=== PATIENT | female | born 1975 | race Caucasian/White ===

== ENCOUNTER 2022-08-25 16:20 | Outpatient (REF) | payer OTHER, SELFPAY ==
[2022-08-30 14:04] LABS: Aldolase 6.5 U/L (<=8.1)
== END 2022-08-25 16:21 | disposition home or self-care (01) ==
LOC: HO.LAB 16:20
PROVIDERS: PCP Internal Medicine; Visit Provider Psychiatry & Neurology Neurology
DX: G71.00 Muscular dystrophy, unspecified (principal)
CPT/HCPCS: 36415; 82085; 82550

== ENCOUNTER 2025-04-20 14:26 | Outpatient (AMB) | payer MEDICARE, MEDICAID, SELFPAY ==
--- OUTSIDE RECORDS SUMMARY | 2024-04-05 12:44 | XMS_ITS | Encounter Summary ---
Author Organization [facility] [place] [address] Care Team Providers Care Warehouse Puller Name Role Phone Chino Sena MD Primary Care Provider [phone] Encounter Details Date Type Department Care Team (Late st Contact Info) Description 04/05/2024 1:44 PM EDT Hospital Encounter TH HISTORIC ENCOUNTERS EASTERN CONVERSION ONLY El Roth MD [address] [place] [address] [place] [address] Social History Tobacco Use Types Packs/Day Years Used Date Smoking Tobacco: Former Cigarettes 1 25.9 1 07/02/1983 - 03/11/2010 Smokeless Tobacco: Never Alcohol Use Standard Drinks/Week Comments Yes 0 (1 standard drink = 0.6 oz pur e alcohol) Interpersonal Safety Answer Date Record ed Physical Abuse Unrecognized value 09/30/2024 Verbal Abuse Unrecognized value 09/30/2024 Comments No Sex and Gender Information Value Date Recorded Sex Assigned at Female 09/18/2021 11:49 PM EDT Legal Sex Female 4:26 AM EDT Gender Identity Female 09/18/2021 11:49 PM EDT Sexual Orientation Straight 05/25/2024 5: 53 AM EST documented as of this encounter Procedure Notes * Queta Park NP - 04/06/2024 9:00 AM EDT ADDENDUM: 04/06/2409 Addendum: [facility] [employer]-C on 04/06/24 @ 09:08 Late entry for procedure performed on 04/05/2024 Procedure Note Encounter Date & Time 04/06/24 08:57 Procedure Note Procedure: Tilt table test Patient was brought to the radiology department fasting state and placed onto the tilt table. She was connected to continuous noninvasive EKG monitoring. A hemisphere finger blood pressure monitor was used for the duration of the pro cedure. An intravenous line was inserted with normal saline at a KVO rate. Baseline blood pressure 81/65 with a heart rate of 64 normal sinus rhythm. Patient is asymptomatic. After a 5-minute wait. The table was tilted to a 70 degree upright position. First blood pressure upright is 86/75 with a heart rate of 66 patient is asymptomatic. At 10 minutes the blood pressure is 107/78 with heart rate of 71 At 20 minutes of blood pressure is 92/66 with a heart rate of 68 patient is asymptomatic. Patient was returned to a flat position I did give her 500 cc of IV normal saline. After the fluid her blood pressure lying is 116/70 with a heart rate of 60 when she went from lying to sitting she was briefly dizzy her systolic pressure did briefly drop into the 70s before coming back up into the 90s heart rate remained in the 60s when she went from sitting to standing her systolic again very briefly dropped into the 80s and stabilized in the mid 90s with a heart rate of 66 and she was mildly symptomatic. Impression: Orthostatic hypotension. Of asked her to increase her sodium and her fluid intake. She is currently been on a low to no sodium diet. Send Copies To: CHINO SENA MD; EL ROTH MD, PHYLLIS A FNP-C Apr 06, 2024 09:00 documented in this encounter Plan of Treatment Upcoming Encounters Date Type Department Care Team (Late st Contact Info) Description 05/08/2025 1:00 PM EST Office Visit Orthopedic Surgery - [place] [address] [facility] [address] [place] [phone] Cecil Cruz DPM 175 [facility] [address] [place] [phone] 05/10/2025 2:40 PM EST Office Visit [facility] [address] [place] [address] Dr Phipps [address] [place] [phone] Alivia Aragon NP [address] [place] [address] Matthew [address] [place] [phone] 05/23/2025 3:15 PM EST Office Visit Internal Medicine - [address] [phone] Marisel aDniel NP [address] [place] [phone] 05/25/2025 2:00 PM EST Office Visit Internal Medicine - [address] [phone] Tanya Velasco MD [address] [place] [address] 05/29/2025 4:00 PM EST Office Visit Pulmonology - [place] 175 [facility] [address] [place] [phone] Wendy Lang, SELLING UNDERWRITER [address] [place] [phone] 07/03/2025 3:00 PM EST Office Visit Gastroenterology - [address] [place] [address] [phone] Citlaly Longoria, MAGGI [address] [address] 07/25/2025 4:00 PM EST Office Visit Endocrinology - [place] [address] [place] [address] Tomasa Aranda PA [address] [place] [address] documented as of this encounter Visit Diagnoses Not on filedocumented in this encounter Additional Health Concerns Infection Onset Date Last Indicated Resolved Time COVID-19 04/25/2024 04/25/2024 05/25/2024 7:05 PM EST documented as of this encounter Care Teams Warehouse Puller Relationship Specialty Start Date End Date Chino Sena MD PCP - General Internal Medicine 06/11/16 03/02/25 documented as of this encounter
--- NOTE | 2025-04-20 14:34 | A.OFFVIS_ITS ---
Intake Visit Reasons: 6m migraine, RLS Allergies adhesive tape Allergy (Unknown, Verified 04/20/25 14:40) Unknown ibuprofen Allergy (Unknown, Verified 04/20/25 14:40) Unknown oxaprozin (From Daypro) Allergy (Unknown, Verified 04/20/25 14:40) Unknown senna Allergy (Unknown, Verified 04/20/25 14:40) Unknown Medication List - Last Reconciled 04/20/25 by Rosa Cage CNP albuterol sulfate 90 mcg/actuation (Ventolin HFA) inhalation baclofen 5 mg PO TID buspirone 22.5 mg PO BID dulaglutide (Trulicity) mg subcut duloxetine 30 - 60 mg PO DAILY gabapentin 800 mg PO TID lovastatin 80 mg PO BEDTIME montelukast 10 mg PO BEDTIME propranolol 10 mg PO DAILY PRN ropinirole 0.25 - 0.5 mg PO QPM sumatriptan succinate 50 mg PO topiramate 25 mg PO BEDTIME ustekinumab (Stelara) mg subcut HPI Comments Details: 49-year-old woman with 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 She had muscle biopsy which came back insignificant. ? She was doing okay. Headaches were not that bad and she has not had to use sumatriptan. RLS symptoms were controlled with ropinirole 0.5mg. Sleep was so- so, using CPAP. Stress was still there, working with therapist and psychiatrist. She grew tomato plants over the summer which she enjoyed. [facility] Medical History (Updated 04/20/25 @ 14:40 by Rosa Cage CNP) Insomnia Diabetes MERCEDES (obstructive sleep apnea) Crohn's disease Low back pain Muscular dystrophy, unspecified Migraine RLS (restless legs syndrome) Review of Systems Const Denies chills, Denies daytime sleepiness, Denies difficulty sleeping, Denies fatigue, Denies fever(s), Denies frequent falls, Reports headache(s), Denies increased appetite, Denies poor appetite, Denies snoring, Denies weakness, Denies weight gain and Denies weight loss Eyes Denies loss of vision ENT Denies vertigo, Denies dizziness and Reports headache(s) Card Denies chest pain at rest, Denies chest pain with activity, Denies syncope, Denies leg edema and Denies palpitations Resp Denies snoring GI Denies constipation, Denies heartburn, Denies diarrhea and Denies nausea Denies urinary frequency, Denies urinary incontinence and Denies urinary urgency Musc Denies abnormal gait, Denies numbness and Denies tingling Skin/Breast Denies dry skin and Denies rash Neuro Denies abnormal gait, Denies vertigo, Denies dizziness, Denies syncope, Denies frequent falls, Reports headache(s), Denies lack of coordination, Denies loss of vision, Denies memory loss, Denies numbness, Reports restless legs, Denies seizure-like activity, Denies tingling, Denies paresthesias, Denies tremor(s) and Denies weakness Psych Denies anxiety, Denies depression, Denies auditory hallucinations, Denies memory loss, Denies visual hallucinations and Denies suicidal ideation Endo Denies fatigue and Denies palpitations Physical Exam Const Other: General Appearance:? normal, in no acute distress. Heart:? S1, S2 normal, no murmurs. Lungs:? clear anteriorly and posteriorly. Musculoskeletal:? normal. Extremities:? R walking boot. Psych:? alert, oriented, cognitive function intact, cooperative with exam. Neuro Other: Mental Status:?Normal attention, orientation, memory and affect.? Cranial Nerves:?Pupils are equal, round and reactive to light. External occular muscles are intact. Visual monzon are full. Face is symmetrical. Facial sensations are normal. Tongue is midline. Palate elevates symmetrically. Shoulder shrugging is normal. Hearing to bedside conversation is normal. Motor Examination:?Hypertrophy of both calfs, rare fasciculations in calfs and thigh muscles. DTRs trace, absent in ankles with flexor plantars.? Sensory Exam:?....? Coordination:?No ataxia,?no titubation.? Gait Exam: Within normal limits. Cerebellar Signs:?[id number] is okay. Extrapyramidal System:?No tremor, rigidity with normal facial expressions.? Pronator Drift:?Not present.? Involuntary Movements:?No tremors seen.? Speech:?Normal.? Results Reviewed Results Reviewed: NCV/EMG LE Moderate to severe bilateral peroneal neuropathy. 08/28/22. MRI C spine WWO at [facility] in 2014: straight curvature, C 6/7 dis bulge MRI brain WO at [facility] in 2014: [place] MRI T spine at [facility] WO in 2014: [place] MRI LS spine at [facility] WO in 07-22: L 4/5 and L5/S1 mild stenosis Labs at [facility] in : CBC ok, ESR 5, CMP ok, LFTs ok, B12 1784, Folate >20, TSH 1.1, LDL: 71 RF ok, RONAL neg, Lyme neg, tox scr + canabanoids. Assessment & Plan Assessment & Plan (1) Migraine: Code(s): G43.909 - Migraine, unspecified, not intractable, without status migrainosus Category: Medical Qualifiers: Migraine type: unspecified Status migrainosus presence: without status migrainosus Intractability: not intractable Qualified Code(s): G43.909 - Migraine, unspecified, not intractable, without status migrainosus Plan: Continue topiramate 25mg 1 tablet at bedtime. Continue sumatriptan 50mg 1 tablet as needed for migraine. (2) RLS (restless legs syndrome): Code(s): G25.81 - Restless legs syndrome Category: Medical Plan: Continue ropinirole 0.25mg 2 tablets in the evening. (3) Fibromyalgia: Code(s): M79.7 - Fibromyalgia Category: Medical (4) Anxiety: Code(s): F41.9 - Anxiety disorder, unspecified Category: Medical (5) Muscular dystrophy, unspecified: Code(s): G71.00 - Muscular dystrophy, unspecified Category: Medical Plan Meds tried: Gabaentin, duloxetine, diazepam, verapamil Medications: New topiramate 25 mg PO BEDTIME 90 tabs 1RF 90 days ropinirole 0.5 mg (2 x 0.25 mg) PO QPM 180 tabs 1RF 90 days Coding Level of Care Code Est Pt Level 4 (91969) Diagnoses Migraine without status migrainosus, not intractable, unspecified migraine type G43.909 Migraine type: unspecified Status migrainosus presence: without status migrainosus Intractability: not intractable RLS (restless legs syndrome) G25.81 Fibromyalgia M79.7 Anxiety F41.9 Muscular dystrophy, unspecified G71.00
--- OUTSIDE RECORDS SUMMARY | 2025-04-20 17:52 | XMS_ITS | Clinical Summary ---
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 ([facility] V24, [facility] V28) DX:Muscular dystrophy ([facility]) Gassiness DX:Gassiness Moderate non-proliferative d iabetic retinopathy ([facility] V24, [facility] V28) 03/06/2023 DX:Moderate non -proliferative diabetic retinopathy ([facility]) Covid 04/24/2024 Family History Medical History Relation Name Comments Other cancer Aunt 1 ovarian/hystere ctomy-materna l Breast cancer Aunt 2 lymph ducts/ma stectomy same aunt-mat Other: Other Aunt 3 paternal aunt d ied in her early 50s Breast cancer Aunt 4 maternal aunt, bilateral No Known Problems Brother 1 Other: degenatrative spine disease Brother 2 No Known Problems Daughter No Known Problems Father Other cancer Maternal Grandfather abdomin al-likely pancreatic Colon cancer Maternal Grandmother and bacilio betes Dementia Maternal Grandmother Diabetes Mother dementia, sleep apnea Colon cancer Other 1 maternal gr unc le; and lung Colon cancer Other 2 maternal gr unc le Other cancer Paternal Grandfather throat/ laryngeal ca, cigar smoker Sleep disorder Paternal Grandmother of [place] - age 50; arthritis also Relation Name Status Comments Aunt 1 Aunt 2 Aunt 3 Aunt 4 Brother 1 Alive Brother 2 Daughter Alive Father Alive Maternal Grandfather Maternal Grandmother Alive Mother Alive Other 1 Other 2 Paternal Grandfather Paternal Grandmother Social History Tobacco Use Types Packs/Day Years Used Date Smoking Tobacco: Former Cigarettes 1 25.9 1 07/02/1983 - 03/11/2010 Smokeless Tobacco: Never Tobacco Cessation:Counseling Given: Not Answered Alcohol Use Standard Drinks/Week Comments Yes 0 [...] Orientation Straight 05/25/2024 5: 53 AM EST Obstetrics History * This document contains information received from the source organization and may not represent a complete record from that organization. Para Term AB IAB SAB Ectopic Multiple Livin g Live Births 2 1 1 1 1 Date Outcome GA Total Labor Labor/2nd/3rd Weight Sex Type Anes PTL Whitley A1 A5 Name Clin 01/05 02/15 Term 39w 0d 3884 g (137 oz) F CS-Un spec Living Nancy Last Filed Vital Signs Vital Sign Reading Time Taken Comments Blood Pressure 88/61 04/14/2025 2:26 PM EST Pulse 64 04/14/2025 2:26 PM EST Temperature 36.4 C (97.5 F) 04/14/2025 2:26 PM EST Respiratory Rate 16 01/26/2025 4:12 PM EDT Oxygen Saturation 98% 02/13/2025 1:40 PM EDT Inhaled Oxygen Concentration - - Weight 86.7 kg (191 lb 3.2 oz) 04/14/2025 2:26 P M EST Height 165.1 cm (5' 5 ) 04/14/2025 2:26 PM EST Body Mass Index 31.82 04/14/2025 2:26 PM EST Plan of Treatment Upcoming Encounters Date Type Department Care Team (Late st Contact Info) Description 05/08/2025 1:00 PM EST Office Visit Orthopedic Surgery - [place] [address] [phone] Cecil Cruz, DPM [address] [phone] 05/10/2025 2:40 PM EST Office Visit [facility] [address] [place] [phone] Alivia Aragon NP [address] [place] [address] 05/23/2025 3:15 PM EST Office Visit Internal Medicine - [address] [phone] Marisel Daniel, POT OPERATOR [address] [place] [address] 05/25/2025 2:00 PM EST Office Visit Internal Medicine - [place] [facility] [address] [place] [address] Tanya Velasco MD [address] [place] [phone] 05/29/2025 4:00 PM EST Office Visit Pulmonology - [place] 175 [facility] [address] [place] [phone] Wendy Lang, MAGGI [address] [place] [phone] 07/03/2025 3:00 PM EST Office Visit Gastroenterology - [address] [facility] [address] [place] [phone] Citlaly Longoria NP [address] [address] 07/25/2025 4:00 PM EST Office Visit Endocrinology - [place] [address] [place] [phone] Tomasa Aranda PA [address] [place] [address] Health Maintenance Due Date Last Done Comments Hepatitis B Vaccines (1 of 3 - 19+ 3-dose series) 1992 Pneumococcal Vaccine: 50+ Years (2 of 2 - PCV) 03/03/2015 03/03/2014 Hepatitis C Screening 01/17/2021 Medicare Annual Wellness Visit 01/17/2021 Social Influencers of Health Screening 01/17/2021 RSV Immunization Adult Patients (1 - Risk 50-74 years 1-dose series) 2023 Zoster Vaccines (1 of 2) 2023 Depression Screening 06/08/2024 05/13/2024 Diabetes: Annual Urine Albumin-Creatinine Ratio (uACR) 09/14/2024 09/15/2023 Diabetes: Annual Foot Exam 09/16/2024 09/17/2023 COVID-19 Vaccine ( season) 2025 02/09/2021, 12/31/2020 Influenza Vaccine (#1) 2025 , 05/08/2020, 05/08/2020, Additional history exists Diabetes: Annual Retina Eye Exam 04/18/2025 04/18/2024 Diabetes: Blood Sugar Control Test (HGBA1C) 07/14/2025 01/11/2025, 06/28/2024, 02/09/2024, Additional history exists Diabetes: Annual GFR (Glomerular Filtration Rate) 03/29/2026 03/29/2025, 11/08/2024, 02/09/2024, Additional history exists Breast Cancer Screening 03/03/2027 03/03/20, 02/16/2024, 02/16/2024, Additional history exists Cervical Cancer Screening: HPV 08/21/2027 08/20/2022 Cholesterol Screening (Lipid Panel) 09/14/2028 09/15/2023 Colorectal Cancer Screening: Colonoscopy 09/30/2029 09/30/2024, 03/16/2019 DTaP,Tdap,and Td Vaccines (3 - Td or Tdap) 02/17/2033 02/17/2023, 11/19/2012 HIV Screening Completed 05/08/2015 HIB Vaccines Aged Out No longer eligi ble based on patient's age to complete this topic HPV Vaccines Aged Out No longer eligi ble based on patient's age to complete this topic Hepatitis A Vaccines Aged Out No long er eligible based on patient's age to complete this topic IPV Vaccines Aged Out No longer eligi ble based on patient's age to complete this topic MMR Vaccines Aged Out No longer eligi ble based on patient's age to complete this topic Meningococcal ACWY Vaccine Aged Out N o longer eligible based on patient's age to complete this topic Meningococcal B Vaccine Aged Out No l onger eligible based on patient's age to complete this topic RSV Immunization Patients Under 20 months Aged Out No longer eligible based on patient's age to complete this topic Varicella Vaccines Aged Out No longer eligible based on patient's age to complete this topic Procedures Procedure Name Priority Date/Time Associated Diagnosis Comments MG MAMMO DIGITAL SCREENING W BRANDON BILAT Routine 03/03/2025 3:32 PM EDT Encounter for screening mammogram for breast cancer HEMOGLOBIN A1C Routine 01/11/2025 2:33 PM EDT Diabetes 1.5, managed as type 2 ([facility] V24, [facility] V28) BASIC METABOLIC PANEL Routine 11/08/2024 3:20 PM EDT Type 2 diabetes, controlled, with neuropathy ([facility] V24, [facility] V28) COLONOSCOPY Routine 09/30/2024 9:57 AM EDT Crohn's disease ([facility] V24, [facility] V28) DIABETES FOOT EXAM Routine 09/17/2023 URINE ALBUMIN CREATININE RATIO Routine 09/15/2023 LIPID PANEL Routine 09/15/2023 HPV Routine 08/20/2022 HIV SCREENING Routine 05/08/2015 from Last 3 Months or Most Recently Relevant to Health Maintenance Results * MG Mammo Digital Screening w Brandon bilat (03/03/2025 3:32 PM EDT) Anatomical Region Laterality Modality Breast Bilateral Mammography 03/08/2025 9:06 AM EDT Impressions 03/08/2025 9:17 AM EDT Benign. BI-RADS CATEGORY: 1 - NEGATIVE RECOMMENDATION: Screening bilateral mammogram is recommended in 1 year. Mammo Location: [place] [facility], [address] [place] [address], [phone], . -------- FINAL REPORT -------- Dictated By: Brianne Bullard Dictated Date: 03/08/2025 09:06 ET Assigned Physician: Brianne Bullard Reviewed and Electronically Signed By: Brianne Bullard Signed Date: 03/08/2025 09:17 ET Workstation ID: [id number] Transcribed By: Self Edit Transcribed Date: 03/08/2025 09:09 ET Narrative 03/08/2025 9:17 AM EDT CLINICAL: 48 years old, Female, routine annual exam. COMPARISON: Mammograms dating back to 11/26/2020 with most recent of 02/16/2024. TECHNIQUE: Bilateral MLO and CC views were obtained digitally with 3-D mammogram (digital breast tomosynthesis). Computer-aided detection was utilized in evaluation of this exam (CAD). FINDINGS: There is no evidence of suspicious mass or architectural distortion. No worrisome calcifications are evident. There has been no significant change from prior exam(s). BREAST DENSITY: B - There are scattered areas of fibroglandular density. Procedure Note Brianne Bullard MD - 03/08/2025 CLINICAL: 48 years old, Female, routine annual exam. COMPARISON: Mammograms dating back to 11/26/2020 with most recent of02/16/2024. TECHNIQUE: Bilateral MLO and CC views were obtained digitally with 3-Dmammogram (digital breast tomosynthesis). Computer-aided detection wasutilized in evaluation of this exam (CAD). FINDINGS: There is no evidence of suspicious mass or architectural distortion. Noworrisome calcifications are evident. There has been no significantchange from prior exam(s). BREAST DENSITY: B - There are scattered areas of fibroglandular density. IMPRESSION: Benign. BI-RADS CATEGORY: 1 - NEGATIVE RECOMMENDATION: Screening bilateral mammogram is recommended in 1 year. Mammo Location: [place] [facility], [address] [place] [address], [phone], . -------- FINAL REPORT -------- Dictated By: Brianne Bullard Dictated Date: 03/08/2025 09:06 ET Assigned Physician: Brianne Bullard Reviewed and Electronically Signed By: Brianne Bullard Signed Date: 03/08/2025 09:17 ET Workstation ID: [id number] Transcribed By: Self Edit Transcribed Date: 03/08/2025 09:09 ET us Tanya Velasco MD IMG BI PROCEDURES Final Result * (ABNORMAL) Hemoglobin A1c (01/11/2025 2:33 PM EDT) Pathologist [facility] Hemoglobin A1C 6.9(H) <6.5 % LAB CHEMISTRY METHOD 01/11/2025 9:21 PM EDT [facility] Mean Bld Glu Estim. 151 mg/dL LAB CHEMISTRY METHOD 01/11/2025 9:21 PM EDT [facility] Blood Venous blood specimen / Unknown Venipuncture / Unknown 01/11/2025 2:33 PM EDT 01/11/2025 2:33 PM EDT Cassie ASTUDILLO LAB BLOOD ORDERABLES Final Result [facility] [address] [place] [address], * (ABNORMAL) Basic metabolic panel (11/08/2024 3:20 PM EDT) [facility] Sodium 142 133 - 145 mmol/L LAB CHEMISTRY METHOD 11/08/2024 7:32 PM EDT [facility] Potassium 4.3 3.5 - 5.5 mmol/L LAB CHEMISTRY METHOD 11/08/2024 7:32 PM EDT [facility] Chloride 109 96 - 110 mmol/L LAB CHEMISTRY METHOD 11/08/2024 7:32 PM EDT [facility] CO2 29 21 - 32 mmol/L LAB CHEMISTRY METHOD 11/08/2024 7:32 PM EDT [facility] Anion Gap 4 3 - 11 LAB CHEMISTRY METHOD 11/08/2024 7:32 PM EDT [facility] Glucose 172(H) 70 - 100 mg/dL LAB CHEMISTRY METHOD 11/08/2024 7:32 PM EDT [facility] BUN 13 5 - 25 mg/dL LAB CHEMISTRY METHOD 11/08/2024 7:32 PM EDT [facility] Creatinine 0.70 0.50 - 1.10 mg/dL LAB CHEMISTRY METHOD 11/08/2024 7:32 PM EDT [facility] eGFR 105 >=60 mL/min/1. 73m2 LAB CHEMISTRY METHOD 11/08/2024 7:32 PM EDT [facility] Comment:Calculation based on the Chronic Kidney Disease Epidemiology Collaboration (CKD-EPI) equation refit without adjustment for race. BUN/Creatinine Ratio 18.6 LAB CHEMISTRY METHOD 11/08/2024 7:32 PM EDT [facility] Calcium 9.0 8.5 - 10.5 mg/dL LAB CHEMISTRY METHOD 11/08/2024 7:32 PM EDT [facility] Blood Venous blood specimen / Unknown Venipuncture / Unknown 11/08/2024 3:20 PM EDT 11/08/2024 3:27 PM EDT Chino Jasmine MD LAB BLOOD ORDERABLES Holly l Result [facility] [address] [place] [address], * COLONOSCOPY Anesthesia - [facility]; [facility] ENDOSCOPY (09/30/2024 9:57 AM EDT) Anatomical Region Laterality Modality Endoscopy 09/30/2024 9:02 AM EDT Impressions 09/30/2024 9:58 AM EDT - The examined portion of the ileum was normal. Biopsied. - One 3 mm polyp in the cecum, removed with a cold biopsy forceps. Resected and retrieved. Biopsied. - One 15 mm polyp in the cecum, removed with a cold snare. Resected and retrieved. Injected. Clips were placed. Clip manufacturer's service representative: [employer]. - Congested, erythematous, eroded, inflamed and nodular mucosa in the rectum, in the sigmoid colon, in the ascending colon and in the cecum. Biopsied. - The entire examined colon is normal on direct and retroflexion views. Recommendation: - - Discharge patient to home. - High fiber diet. - Continue present medications. - Await pathology results. - Repeat colonoscopy for surveillance based on pathology results. - Mesalamine treatment is not working. Unclear why she is on mesalamine for Crohn's disease. Narrative 09/30/2024 9:58 AM [facility] GI Patient Name: Bette Woodard Procedure Date: 09/30/2024 9:02 AM Date of : 1975 Age: 49 Gender: Female Note Status: Finalized Attending MD: Timmy Jacques DO, [id number] Procedure Date No Time: 09/30/2024 Procedure: Colonoscopy Indications: High risk colon cancer surveillance: Crohn's colitis of 8 (or more) years duration with one-third (or more) of the colon involved Providers: Timmy Jacques DO Referring MD: Chino Jasmine MD Medicines: Monitored Anesthesia Care Complications: No immediate complications. Estimated blood loss: Minimal. Estimated Blood Loss: Estimated blood loss was minimal. Procedure: Pre-Anesthesia Assessment: - - Prior to the procedure, a History and Physical was performed, and patient medications and allergies were reviewed. The patient is competent. The risks and benefits of the procedure and the sedation options and risks were discussed with the patient. All questions were answered and informed consent was obtained. Patient identification and proposed procedure were verified by the physician, the nurse, the anesthesiologist, the centerless grinder set up operator and the master automotive technician in the pre-procedure area in the endoscopy suite. Mental Status Examination: alert and oriented. Airway Examination: normal oropharyngeal airway and neck mobility. Respiratory Examination: clear to auscultation. CV Examination: normal. Prophylactic Antibiotics: The patient does not require prophylactic antibiotics. Prior Anticoagulants: The patient has taken no anticoagulant or antiplatelet agents. ASA Grade Assessment: II - A patient with severe systemic disease. After reviewing the risks and benefits, the patient was deemed in satisfactory condition to undergo the procedure. The anesthesia plan was to use monitored anesthesia care (MAC). Immediately prior to administration of medications, the patient was re-assessed for adequacy to receive sedatives. The heart rate, respiratory rate, oxygen saturations, blood pressure, adequacy of pulmonary ventilation, and response to care were monitored throughout the procedure. The physical status of the patient was re-assessed after the procedure. After I obtained informed consent, the scope was passed under direct vision. Throughout the procedure, the patient's blood pressure, pulse, and oxygen saturations were monitored continuously.The Olympus Pediatric Colonoscope was introduced through the anus and advanced to the cecum, identified by the appendiceal orifice. The colonoscopy was performed without difficulty. The patient tolerated the procedure well. The quality of the bowel preparation was good. Findings: The perianal and digital rectal examinations were normal. The terminal ileum appeared normal. Biopsies were taken with a cold forceps for histology. Estimated blood loss was minimal. A 3 mm polyp was found in the cecum. The polyp was sessile. The polyp was removed with a cold biopsy forceps. Resection and retrieval were complete. Biopsies were taken with a cold forceps for histology. Estimated blood loss was minimal. A 15 mm polyp was found in the cecum. The polyp was sessile. Area was successfully injected with 1 mL of a 0.1 mg/mL solution of epinephrine for a lift polypectomy. The polyp was removed with a cold snare. Resection and retrieval were complete. Estimated blood loss was minimal. To prevent bleeding after the polypectomy, three hemostatic clips were successfully placed. Clip manufacturer's service representative: [employer]. Bleeding had stopped at the end of the procedure. Estimated blood loss was minimal. A patchy area of moderately congested, erythematous, eroded, inflamed and nodular mucosa was found in the rectum, in the sigmoid colon, in the ascending colon and in the cecum. Biopsies were taken with a cold forceps for histology. Estimated blood loss was minimal. The entire examined colon appeared normal on direct and retroflexion views. Procedure Code(s): --- Professional --- 57287, Colonoscopy, flexible; with removal of tumor(s), polyp(s), or other lesion(s) by snare technique 53468, 59, Colonoscopy, flexible; with biopsy, single or multiple 75703, Colonoscopy, flexible; with directed submucosal injection(s), any substance Diagnosis Code(s): --- Professional --- K63.89, Other specified diseases of intestine K62.89, Other specified diseases of anus and rectum K52.9, Noninfective gastroenteritis and colitis, unspecified D12.0, Benign neoplasm of cecum K50.10, Crohn's disease of large intestine without complications CPT copyright 2020 [employer]. All rights reserved. The codes documented in this report are preliminary and upon braille coder review may be revised to meet current compliance requirements. TIMMY Jacques DO 09/30/2024 9:58:35 AM This report has been signed electronically.Timmy Jacques DO Number of Addenda: 0 Note Initiated On: 09/30/2024 9:02 AM Scope Withdrawal Time: 0 hours 14 minutes 35 seconds Scope In: 9:33:04 AM Scope Out: 9:54:48 AM Endoscopy Department at [facility] - [address] [place] [phone] Procedure Note Timmy Jacques DO - 09/30/2024 [facility] GI Patient Name: Bette Woodard Procedure Date: 09/30/2024 9:02 AM Date of : 1975 Age: 49 Gender: Female Note Status: Finalized Attending MD: Timmy Jacques DO, [id number] Procedure Date No Time: 09/30/2024 Procedure: Colonoscopy Indications: High risk colon cancer surveillance: Crohn'scolitis of 8 (or more) years duration with one-third (ormore) of the colon involved Providers: Timmy Jacques DO Referring MD: Chino Jasmine MD Medicines: Monitored Anesthesia Care Complications: No immediate complications. Estimated blood loss: Minimal. Estimated Blood Loss: Estimated blood loss was minimal. Procedure: Pre-Anesthesia Assessment: - - Prior to the procedure, a History and Physicalwas performed, and patient medications and allergieswere reviewed. The patient is competent. The risks and benefits of the procedure and the sedation optionsand risks were discussed with the patient. Allquestions were answered and informed consent was obtained. Patient identification and proposed procedure were verified by the physician, the nurse, the anesthesiologist, the centerless grinder set up operator and thetechnician in the pre-procedure area in the endoscopy suite. Mental Status Examination: alert and oriented.Airway Examination: normal oropharyngeal airway and neck mobility. Respiratory Examination: clear to auscultation. CV Examination: normal. Prophylactic Antibiotics: The patient does not requireprophylactic antibiotics. Prior Anticoagulants: The patient has taken no anticoagulant or antiplatelet agents. ASA Grade Assessment: II - A patient with severesystemic disease. After reviewing the risks and benefits,the patient was deemed in satisfactory condition to undergo the procedure. The anesthesia plan was touse monitored anesthesia care (MAC). Immediately priorto administration of medications, the patient was re-assessed for adequacy to receive sedatives. The heart rate, respiratory rate, oxygen saturations, blood pressure, adequacy of pulmonary ventilation,and response to care were monitored throughout the procedure. The physical status of the patient was re-assessed after the procedure. After I obtained informed consent, the scope was passed under direct vision. Throughout theprocedure, the patient's blood pressure, pulse, and oxygen saturations were monitored continuously.The Olympus Pediatric Colonoscope was introduced through theanus and advanced to the cecum, identified by the appendiceal orifice. The colonoscopy was performed without difficulty. The patient tolerated the procedure well. The quality of the bowelpreparation was good. Findings: The perianal and digital rectal examinations were normal. The terminal ileum appeared normal. Biopsies were taken with a cold forceps for histology. Estimated blood loss was minimal. A 3 mm polyp was found in the cecum. The polyp was sessile. The polyp was removed with a cold biopsy forceps. Resection and retrieval were complete. Biopsies were taken with a cold forceps forhistology. Estimated blood loss was minimal. A 15 mm polyp was found in the cecum. The polyp was sessile. Area was successfully injected with 1 mLof a 0.1 mg/mL solution of epinephrine for a lift polypectomy. The polyp was removed with a coldsnare. Resection and retrieval were complete. Estimatedblood loss was minimal. To prevent bleeding after the polypectomy, three hemostatic clips weresuccessfully placed. Clip manufacturer's service representative: [employer].Bleeding had stopped at the end of the procedure. Estimated blood loss was minimal. A patchy area of moderately congested,erythematous, eroded, inflamed and nodular mucosa was found inthe rectum, in the sigmoid colon, in the ascendingcolon and in the cecum. Biopsies were taken with a cold forceps for histology. Estimated blood loss was minimal. The entire examined colon appeared normal on direct and retroflexion views. Procedure Code(s): --- Professional --- 05510, Colonoscopy, flexible; with removal of tumor(s), polyp(s), or other lesion(s) by snare technique 45479, 59, Colonoscopy, flexible; with biopsy,single or multiple [address]6499, Colonoscopy, flexible; with directedsubmucosal injection(s), any substance Diagnosis Code(s): --- Professional --- K63.89, Other specified diseases of intestine K62.89, Other specified diseases of anus andrectum K52.9, Noninfective gastroenteritis and colitis, unspecified D12.0, Benign neoplasm of cecum K50.10, Crohn's disease of large intestine without complications CPT copyright 2020 [employer]. All rights reserved. The codes documented in this report are preliminary and upon braille coder reviewmay be revised to meet current compliance requirements. TIMMY Jacques DO 09/30/2024 9:58:35 AM This report has been signed electronically.Timmy Jacques DO Number of Addenda: 0 Note Initiated On: 09/30/2024 9:02 AM Scope Withdrawal Time: 0 hours 14 minutes 35 seconds Scope In: 9:33:04 AM Scope Out: 9:54:48 AM Endoscopy Department at [address] [id number] IMPRESSION: - The examined portion of the ileum was normal. Biopsied. - One 3 mm polyp in the cecum, removed with a cold biopsy forceps. Resected and retrieved. Biopsied. - One 15 mm polyp in the cecum, removed with a cold snare. Resected and retrieved. Injected. Clips were placed. Clip manufacturer's service representative: [employer]. - Congested, erythematous, eroded, inflamed and nodular mucosa in the rectum, in the sigmoid colon,in the ascending colon and in the cecum. Biopsied. - The entire examined colon is normal on direct and retroflexion views. Recommendation: - - Discharge patient to home. - High fiber diet. - Continue present medications. - Await pathology results. - Repeat colonoscopy for surveillance based on pathology results. - Mesalamine treatment is not working. Unclear whymacy is on mesalamine for Crohn's disease. Timmy Jacques DO GI~PROCEDURE ORDERABLES Final Re sult * Diabetes Foot Exam (09/17/2023) Diabetes: Annual Foot Exam abstracted Historical Provider HEALTH MAINTENANCE Final Result * Urine Albumin Creatinine Ratio (09/15/2023) Pathologist [facility] Urine Albumin Creatinine Ratio abstracted Historical Provider HEALTH MAINTENANCE Final Result * Lipid panel (09/15/2023) [facility] LDL/HDL Ratio 2 Triglycerides 71 mg/dL Cholesterol 134 mg/dL HDL 61 mg/dL LDL Cholesterol 59 mg/dL Blood Venous blood specimen / Unknown Result [facility] Provider LAB BLOOD ORDERABLES Holly l Result * Cervical Cancer Screening: HPV (08/20/2022) [facility] Cervical Cancer Screening: HPV abstracted ,negative [facility] Provider HEALTH MAINTENANCE Final Result * HIV Screening (05/08/2015) [facility] HIV Screening abstracted [facility] Provider HEALTH MAINTENANCE Final Result from Last 3 Months or Most Recently Relevant to Health Maintenance Insurance MEDICAID - [place] MEDICARE Care Teams Power Engineer Relationship Specialty Start Date End Date Tanya Velasco MD [address] [facility] [place] [id number] PCP - General Internal Medicine 03/03/25
--- OUTSIDE RECORDS SUMMARY | 2025-04-20 17:52 | XMS_ITS | Clinical Summary ---
Author Organization [facility] Address [address] [place] [address] [address] [place] [address] Phone Care Team Providers Care Mobility Specialist Name Role Phone Chino Jasmine MD Primary Care Provider [phone] Medications amitriptyline (ELAVIL) 10 MG tablet TAKE 1 TO 2 TABLETS BY MOUTH NIGHTLY 09/09/19 24 Active baclofen (LIORESAL) 5 mg tablet Take 5 mg by mouth. 09/09/19 24 Active biotin 5 mg Cap Take 5 mg by mouth daily. Active balsalazide (COLAZAL) 750 mg capsule Take 2,250 mg by mouth. 03/17/20 24 Active busPIRone (BUSPAR) 15 MG tablet Take 22.5 mg by mouth. 07/28/19 24 Active cholecalciferol, vitamin D3, 25 mcg (1,000 unit) capsule Take 5,000 Units by mouth. Active cyanocobalamin, vitamin B-12, 100 MCG tablet Take 100 mcg by mouth daily. Active TRULICITY 1.5 mg/0.5 mL subcutaneous injection Inject 1.5 mg under the skin. 06/08/19 23 Active DULoxetine (CYMBALTA) 60 MG capsule 05/08/20 24 Active gabapentin (NEURONTIN) 800 MG tablet Take 800 mg by mouth 3 (three) times a day. 03/18/20 24 Active insulin lispro (ADMELOG, HUMALOG) 100 unit/mL injection vial Use daily with insulin pump. Max daily dose 100 units. Please dispense 3 month supply 07/13/19 25 Active levonorgestreL (MIRENA) 21 mcg/24hr (up to 8 yrs) 52 mg intrauterine device by Intrauterine route. Active LORazepam (ATIVAN) 1 MG tablet Take 1 mg by mouth. 07/01/19 25 Active lovastatin (MEVACOR) 40 MG tablet Take 2 tablets by mouth nightly at bedtime. 04/26/20 24 Active magnesium glycinate 200 mg magnesium capsule 06/08/19 24 Active ondansetron (ZOFRAN-ODT) 4 MG disintegrating tablet Take 4 mg by mouth. 06/15/19 24 Active oxyCODONE 5 MG immediate release tablet Take 5 mg by mouth. 06/15/19 24 Active SUMAtriptan (IMITREX) 50 MG tablet TAKE 1 TABLET BY MOUTH ONCE DAILY AT LEAST 2 HOURS BETWEEN DOSES NEEDED FOR 30 DAYS 06/17/19 24 Active topiramate (TOPAMAX) 100 MG tablet 06/08/19 23 Active Active Problems Problem Noted Date Diagnosed Date Medical cannabis use 07/19/2024 Assessment & Plan (11/21/2024 4:15 PM EDT): Cannabis is working well for her without adverse effects Remains a candidate for cannabis recommendation Assessment & Plan (07/19/2024 4:45 PM EST): J RECOMMENDATION OVERVIEW: We encourage you to support the medical dispensaries by trying different products at different dispensaries. This is the best way to find the products that are the most effective and appealing for you. Many of them offer robust new-patient discounts as well (i.e. $25 off $50, 25% off first purchase). Eventually, you may find that one particular dispensary becomes your preferred due to location, inventory, and/or customer service, but you can always pop into a local dispensary anywhere in [place]. Unless you have otherwise been instructed on a specific product, here are some general guidelines in choosing your products: Dosage: Always start low and go slow. If you are hesitant, start with the equivalent of 1-2.5mg of THC. Combining products: once you know the dose that works for you, you can combine different amounts of different products to elicit different effects. For example combine different indica products /4-1/2 gummy + 1/4-1/2 gummy etc to get the most out of the relaxing/sleep inducing effects Terminology: The distinction sativa, hybrid and indica refers to the effects of the strain, or chemovar, the cannabis plant the products are derived from. They refer to the general effect, which is the following: sativa: energizing thus for daytime use and avoidance with anxiety. hybrid: more leveling than energizing, this can be relaxing indica: relaxing and sedating Adverse effects and/or recommendations: If you have an adverse effect, stop using that product and reach out to your [facility] wellness practitioner for further advice. Follow up with your provider regularly to ensure you are using your cannabis safely and effectively, as well as any updates, in the industry. Dispensaries: The medical dispensaries sell both products they make themselves, while some of them are produced by suppliers in [place]. Many carry many of the same products (i.e. Wilda gummies are the same wherever you buy them) with the adult use/recreational products and the medical products being identical, with some medical-only high dose edibles available. We recommending trying the products the dispensaries make themselves first to support the [place] Medical cannabis industry. Budtenders: The [employer], dispensary employees, are knowledgeable regarding taste, effectiveness, patient preferences, popular products, unpopular products, discounts and deals. Many of them like the intoxicating side effects of cannabis so heed their dosage recommendations carefully. Otherwise, they are an excellent resource. Get to know them! Local vs. Multi-state: Of note, there are multi-state operators (MSO's), as well as dispensaries with a [place] presence only. While we, of course, support medical cannabis anywhere, the dispensaries that only have locations in [place] are preferred as we like to keep it local. Here is a list of dispensaries, as well as some excellent resources from the [place] [employer] [place] (MPAA) for your reference (some are MSO's) : [email or web address] Any other questions, please address with your [facility] wellness provider at follow- up. If you need to schedule and additional follow-up visit, you can do so here: [email or web address] (copy and paste into a browser) Chest pain 02/29/2024 Overview (07/19/2024): Last Assessment & Plan: The patient came [...] chest discomfort with exertion. Palpitations 02/29/2024 Overview (07/19/2024): Last Assessment & Plan: The patient has a longstanding history of episodes of palpitations. She has several episodes of palpitations every week. As such, will order ambulatory classroom monitor in order to rule out any arrhythmias as a cause of her symptoms. Will also order an echocardiogram to rule out any underlying structural heart disease that may be related to her episodes of palpitations. 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 Triggers seems to be allergies. Intertrigo 09/13/2021 Primary osteoarthritis of both hands 01/17/2020 Invagination of intestine 01/03/2020 Crohn's colitis 03/28/2019 Overview (07/19/2024): Mild, confirmed on colonoscopy 03/2019 Assessment & Plan (11/21/2024 4:04 PM EDT): Followed by gi Current regime is working Cannabis helps with pain, inflammation and nausea Continue with regime Follow up with GI as needed Assessment & Plan (07/19/2024 4:42 PM EST): Relatively managed on current regimen. Cannabis is helpful for inflammation as well as abdominal pain. Continue to f/u with GI History of gastric bypass 12/04/2017 Overview (07/19/2024): 2016 Class 1 obesity 09/19/2017 Overview (07/19/2024): Weight management (09/10/17): doing well, f/u in 1 year Gastric bypass 09/21 Headache 09/16/2016 Overview (07/19/2024): Neuro (09/12/16): Follow-up of episodic headache, not [...] Continue Ritalin and topamax Major depression 01/06/2014 Osteoarthritis of lumbar spine 02/25/2013 Overview (07/19/2024): [facility] (): symptoms improved, continue home program [...] small annular tear; small disc bulge R. Fibromyalgia 08/04/2012 Overview (07/19/2024): On Cymbalta, gabapentin, trazodone, sertraline On Cymbalta, gabapentin, trazodone, sertraline Assessment & Plan (11/21/2024 4:03 PM EDT): Chronic pain Recently if feels like muscles are locking up On Cymbalta, gabapentin, trazodone, and sertraline Takes a muscle relaxer as needed Cannabis is helpful Has therapy 1x week Consider yoga and meditation Continue with current regime and follow up as needed Assessment & Plan (07/19/2024 4:43 PM EST): With chronic pain. She finds cannabis to help relax her body and manage the pain in addition to pharmaceuticals. Continue current regimen. Hyperlipidemia 08/04/2012 HTN (hypertension) 08/04/2012 Near syncope 08/04/2012 Overview (07/19/2024): Last Assessment & Plan: The patient has [...] symptoms. Will also order a 30-day ambulatory classroom monitor to rule out any arrhythmias that may be contributing to her episodes of near syncope. Will also order an echocardiogram to rule out any underlying structural heart disease that may be contributing to her episodes of near syncope. Assessment & Plan (07/19/2024 4:44 PM EST): Recent work up for POTs. Continues to be followed by cardiology. Monitor BPs with cannabis. Mindful position changes Obstructive sleep apnea 08/04/2012 Overview (07/19/2024): On CPAP @ 12 [facility] Home Polysomnogram: Date 05/31/2017; AHI 7, Unclassified [...] current settings. Prescription for supplies to the [facility] has been done. I will see her back in 1 year On CPAP @ 12 [facility] Home Polysomnogram: Date 05/31/2017; AHI 7, Unclassified [...] current settings. Prescription for supplies to the [facility] has been done. I will see her back in 1 year Type 2 diabetes, controlled, with neuropathy Overview (07/19/2024): Endocrinology (06/26/17) sees: Continue Humalog pen, continue Humulin 50 units at bedtime, continue metformin at maximum dose V-go [address] Bolden Left leg pain - ? Neuropathy. EMG - 05/19/13 nondiagnostic but ? Borderline left deep peroneal neuropathy Nuclear stress test normal 08/2013 Social History Tobacco Use Types Packs/Day Years Used Date Smoking Tobacco: Never Assessed Education Answer Date Recorded Are you interested in more education? Not on liu e 07/12/2024 Are you concerned about learning? Not on file 07/12/2024 No 07/12/2024 No 07/12/2024 Digital Access Answer Date Recorded No 07/12/2024 No 07/12/2024 Reliable internet access at home? Not on file 07/12/2024 Device with a working camera? Not on file Comments Unknown Sex and Gender Information Value Date Recorded Sex Assigned at Female 09/11/2022 3:36 PM EDT Legal Sex Female 3:28 PM EDT Gender Identity Female 09/11/2022 3:30 PM EDT Sexual Orientation Straight 09/11/2022 3: 36 PM EDT Plan of Treatment Upcoming Encounters Date Type Department Care Team (Late st Contact Info) Description 05/17/2025 3:00 PM EST Telemedicine [facility] [address] [place] [address] Kaitlin Dale NP [address] [facility] [address] [place] [address] [email or web address] [email or web address] Health Maintenance Due Date Last Done Comments BLOOD PRESSURE 1973 DEPRESSION SCREENING 1985 SMOKING Hx and SMOKELESS TOB ACCO SCREENING 1986 HEPATITIS C SCREENING 1991 HIV ONE-TIME SCREENING (18-6 5 YEARS) 1991 PNEUMOCOCCAL VACCINES (50+ y ears) (1 of 2 - PCV) 1992 PAP SMEAR 1994 MAMMOGRAM 2013 COLOGUARD 2018 COLONOSCOPY 2018 COLORECTAL CANCER SCREENING 2018 FIT TEST 2018 FOBT 2018 SIGMOIDOSCOPY 2018 VIRTUAL COLONOSCOPY 2018 Adult Td,Tdap Booster 11/19/2022 11/19/2012 RSV VACCINE (1 - Risk 50-74 years 1-dose series) 2023 ZOSTER VACCINES (1 of 2) 2023 DIABETIC EYE EXAM 07/19/2024 URINE MICROALBUMIN/CREATININ E RATIO 07/19/2024 HEMOGLOBIN A1C 12/26/2024 06/28/2024 INFLUENZA VACCINE (#1) 2025 COVID-19 VACCINE (1 - 2024-2 6 season) 2025 HEPATITIS A VACCINES Aged Out No long er eligible based on patient's age to complete this topic HIB VACCINES Aged Out No longer eligi ble based on patient's age to complete this topic IPV VACCINES Aged Out No longer eligi ble based on patient's age to complete this topic MENINGOCOCCAL VACCINES (ACWY) Aged Out No longer eligible based on patient's age to complete this topic MENINGOCOCCAL VACCINES (B) Aged Out N o longer eligible based on patient's age to complete this topic Medical Devices Not on file [place] [address] [place] [address] [place] [address] [place] [address] [place] [address] [place] [address] [place] [address] [place] [address] [facility] [place] [address] [place] [address] [place] [address] [facility] Care Teams Mobility Specialist Relationship Specialty Start Date End Date Chino Jasmine MD [address] [place] [address] PCP - General Internal Medicine 09/11/22 Additional Source Comments The information contained in this document represents components of the legal health record. It is not the complete legal health record.[facility]
== END 2025-04-20 14:59 | disposition home or self-care (01) ==
LOC: HO.HSM 14:27
PROVIDERS: PCP Internal Medicine; Referring Provider Internal Medicine; Visit Provider Registered Nurse
DX: G43.909 Migraine, unspecified, not intractable, without status migrainosus (principal); G25.81 Restless legs syndrome; M79.7 Fibromyalgia; F41.9 Anxiety disorder, unspecified; G71.00 Muscular dystrophy, unspecified
CPT/HCPCS: 99214

== ENCOUNTER → 2025-04-20 14:26 | Outpatient (BNVA) | payer MEDICARE, MEDICAID, SELFPAY | PROVIDERS: PCP Internal Medicine; Referring Provider Internal Medicine; Visit Provider Registered Nurse | DX: G43.909 Migraine, unspecified, not intractable, without status migrainosus (principal); G25.81 Restless legs syndrome; G47.33 Obstructive sleep apnea (adult) (pediatric); Z99.89 Dependence on other enabling machines and devices; M79.7 Fibromyalgia; F41.9 Anxiety disorder, unspecified; G71.00 Muscular dystrophy, unspecified | CPT/HCPCS: 99212 ==